=== PATIENT | female | born 1975 | race Caucasian/White ===

== ENCOUNTER 2018-05-13 18:52 | Emergency (ER) | payer MEDICARE ==
[~2018-05-13] VITALS: Ht 162.6 cm; Wt 64.0 kg
[2018-05-13 19:01] VITALS: Ht 162.6 cm; Wt 64.0 kg
[2018-05-13 19:24] LABS: BASOPHILS 0.2 % (0-2); EOSINOPHILS 0.1 % (0-7); HEMATOCRIT 35.7 % (36.0-48.0); HEMOGLOBIN 12.1 g/dL (12-16); IMMATURE GRANULOCYTES 1.6 % (0-5); LYMPHOCYTES 6.3 % (15-50); MCH 28.5 pg (26.0-34.0); MCHC 33.9 g/dL (31.0-37.0); MCV 84.2 fL (80.0-100.0); MEAN PLATELET VOLUME 9.7 fL (7.4-10.4); MONOCYTES 10.6 % (2-11); NEUTROPHILS 81.2 % (40-80); PLATELET COUNT 348 10x3/uL (130-400); RBC 4.24 10x6/uL (4.00-5.40); RDW 13.8 % (11.5-14.5); WBC 19.6 10x3/uL (4.8-10.8)
[2018-05-13 19:31] LABS: INR 1.27 (0.85-1.17); PROTIME 15.4 SECONDS (11.6-15.0)
[2018-05-13 19:32] LABS: APTT 47.2 SECONDS (22.8-39.4)
[2018-05-13 19:44] LABS: ALBUMIN 2.6 g/dL (3.4-5.0); ALKALINE PHOSPHATASE 178 U/L (46-116); ALT (SGPT) 27 U/L (10-68); BILIRUBIN - TOTAL 0.49 mg/dL (0.2-1.3); CALC OSMOLALITY 265 mosm/kg (275-300); CALCIUM 8.7 mg/dL (8.5-10.1); CARBON DIOXIDE 27.6 mmol/L (21.0-32.0); CHLORIDE - SERUM 95 mmol/L (98-107); CREATININE - SERUM 0.9 mg/dL (0.6-1.3); GLUCOSE 112 mg/dL (74-106); POTASSIUM - SERUM 3.4 mmol/L (3.5-5.1); PROTEIN - SERUM 8.1 g/dL (6.4-8.2); SODIUM 133 mmol/L (136-145); UREA NITROGEN 9 mg/dL (7-18); eGFR NON AFRICAN AMERICAN 72 mL/min (90-120)
[2018-05-13 20:00] LABS: CREATINE KINASE 14 UL (21-215); MAGNESIUM - SERUM 1.7 mg/dL (1.8-2.4)
[2018-05-13 20:03] LABS: TROPONIN-I < 0.017 ng/mL (0.000-0.060)
[2018-05-13] MEDS ORDERED: LEVOFLOXACIN500 MG PO (20:35)
[2018-05-13 22:00] VITALS: BP 116/79
== END 2018-05-13 22:00 | disposition home or self-care (01) ==
LOC: D.ER 18:52
PROVIDERS: Family Medicine
DX: R09.1 Pleurisy (principal); R05 Cough; F17.200 Nicotine dependence, unspecified, uncomplicated; R09.89 Other specified symptoms and signs involving the circulatory and respiratory systems